=== PATIENT | female | born 1960 | race Caucasian/White ===

== ENCOUNTER 2017-01-14 16:45 | Observation (INO) | payer OTHER ==
[~2017-01-14] VITALS: Ht 165.1 cm; Wt 113.4 kg
[2017-01-14 17:39] VITALS: BP 117/72
[2017-01-14 17:40] VITALS: BP 117/72
[2017-01-14] MEDS ORDERED: PROCHLORPERAZINE 10 MG/2 ML VIAL. IV PRN ×2 (17:45)
[2017-01-14] MEDS ORDERED: MORPHINE SULFATE 2 MG/ML DISP.SYRIN. IV PRN (17:45)
[2017-01-14] MEDS ORDERED: KETOROLAC 15 MG/ML VIAL. IV PRN (17:45)
[2017-01-14] MEDS ORDERED: PROMETHAZINE 12.5 MG in IV NORMAL SALINE 50ML 50 ML IV PRN (17:45)
[2017-01-14] MEDS ORDERED: ACETAMINOPHEN 325 MG TABLET. PO PRN (17:45)
[2017-01-14] MEDS ORDERED: ONDANSETRON PF 4 MG/2 ML VIAL. IV PRN (17:45)
[2017-01-14] MEDS ORDERED: IBUPROFEN 400 MG TABLET. PO PRN (17:45)
[2017-01-14] MEDS ORDERED: PROCHLORPERAZINE 25 MG SUPP.RECT. PR PRN (17:45)
[2017-01-14] MEDS ORDERED: MAGNESIUM HYDROXIDE 2,400 MG/30 ML ORAL.SUSP. PO PRN (17:45)
--- NOTE | 2017-01-14 17:49 | PDOC1 ---
History and Physical Date of Admission Date of Admission DATE: 01/14/17 TIME: 17:44 Identification/Chief Complaint Chief Complaint stuck pork barbecue Problems: Source Source: Chart review, Patient History of Present Illness History of Present Illness pleasant 56 y.o [place]ucs[place] female, hx of Esoph stricture, hx dilatn by outside GI 3 yrs ago, ate pork barbecue and got it stock, Since then emesis, saliva etc, Transferred from [place] for gI and possible EGD, BUt en route via EMS, bumpy ride, she vomited again and this time the whole pork barbecue came out, She feels much better, just tired from her whole ordeal today, Past Medical History Cardiovascular: HTN GI: GERD, Other (esoph stricture) Psych: Depression Past Surgical History Past Surgical History: Other (esophageal diltn) Family History Family History: No Significant Social History Smoke: No ALCOHOL: none Drugs: None Current Problem List Problem List Problems Medical Problems: (1) Esophageal foreign body Status: Acute Problems: Current Medications Current Medications Current Medications Sodium Chloride (Iv Sodium Chloride 0.45%) 1,000 ml @ 100 mls/hr Q10H IV ; Start 01/14/17 at 19:00 Ondansetron HCl (Zofran) 4 mg PRN Q6HRS PRN IV NAUSEA/VOMITING, 2nd choice; Start 01/14/17 at 17:45 Prochlorperazine Edisylate (Compazine) 10 mg PRN Q6HRS PRN IV NAUSEA/VOMITING; Start 01/14/17 at 17:45; Status UNV Prochlorperazine (Compazine) 25 mg PRN Q12HR PRN UT NAUSEA/VOMITING; Start at 17:45 Morphine Sulfate 1 mg PRN Q1HR PRN IV PAIN; Start 01/14/17 at 17:45 Ketorolac Tromethamine (Toradol) 15 mg PRN Q6HRS PRN IV INFLAMMATION/PAIN; Start 01/14/17 at 17:45; Stop 01/19/17 at 17:44 Acetaminophen (Tylenol) 650 mg PRN Q6HRS PRN PO MILD PAIN / TEMP; Start at 17:45; Status UNV Ibuprofen (Motrin) 400 mg PRN Q6HRS PRN PO MILD PAIN; Start 01/14/17 at 17:45; Status UNV Magnesium Hydroxide (Milk Of Magnesia) 2,400 mg PRN Q12HR PRN PO CONSTIPATION; Start 01/14/17 at 17:45; Status UNV Pantoprazole Sodium 40 mg 40 mg DAILYAC IVP ; Start 01/15/17 at 07:30; Status UNV Promethazine HCl/ Sodium Chloride (Phenergan/Iv Sodium Chloride 0.9% 50ml) 50.5 ml @ 151.5 mls/ hr PRN Q6HRS PRN IV NAUSEA/VOMITING, 3rd choice; Start at 17:45 Prochlorperazine Edisylate (Compazine) 10 mg PRN Q6HRS PRN IV NAUSEA/VOMITING, 1st choice; Start 01/14/17 at 17:45 Allergies Allergies: Coded Allergies: No Known Drug Allergies (Unverified , 01/14/17) ROS General: YES: Other (tired, all else is neg) Physical Exam General: Oriented X3, Cooperative, Other (looks tired but not in distress) HEENT: Atraumatic, PERRLA Lungs: Clear to auscultation Cardiovascular: S1, S2 Breasts: Normal, Rt breast nml w/o mass, Lt breast nml w/o mass, Nipples normal Abdomen: Normal bowel sounds, Soft, No tenderness, No hepatosplenomegaly, No masses Rectal Exam: not examined Extremities: No clubbing, No cyanosis, No edema, Normal pulses, No tenderness/ swelling Skin: No rashes, No breakdown, No significant lesion Neuro: Normal gait, Normal speech, Strength at 5/5 X4 ext, Normal tone, Sensation intact, Cranial nerves 3-12 NL, Reflexes 2+ Psych/Mental Status: Mental status NL, Mood NL Vitals Vitals Vital Signs Date Time Temp Pulse Resp B/P Pulse Ox O2 Delivery O2 Flow Rate FiO2 01/14/17 17:40 97.7 68 15 117/72 96 Room Air 97.7 VTE Prophylaxis Ordered VTE Prophylaxis Devices: Yes VTE Pharmacological Prophylaxi: Yes Assessment/Plan Assessment/Plan 1. Esophageal FB - stuck pork barbecue,expelled en route to [facility] after multiple episodes emesis 2. Hx esophageal stricture with hx diltn 3 yrs ago 3,. Depression, HTN, GERD- chronic stable Plan: OBS admit Still GI consult as to check why she got this again - last episode was 3 yrs ago Will defer if need barium swallow, interval EGD ? which pending on their eval can also be done as OP Liquids tonight, Advance as tolerated - REsume home meds freeman Rn and pt KEITH VAUGHAN MD Jan 14, 2017 17:49
[2017-01-14] MEDS: PANTOPRAZOLE IV PUSH 40 MG VIAL. IVP SCH (18:14)
[2017-01-14] MEDS ORDERED: IV 1/2 NORMAL SALINE 1,000 ML IV SCH (19:00)
[2017-01-14 19:24] VITALS: BP 121/71
[2017-01-14 23:00] VITALS: BP 108/71
[2017-01-15 02:29] VITALS: BP 143/82
[2017-01-15 07:25] VITALS: BP 137/85
[2017-01-15] MEDS: PANTOPRAZOLE IV PUSH 40 MG VIAL. IVP SCH (08:00)
--- NOTE | 2017-01-15 10:56 | PDOC2 ---
GI CONSULT Reason For Consult: Food bolus HPI: HPI: 56 y/o female ate BBQ pork and corn on the cob on 01/13, got a piece of food caught. Went to [facility], unresolved, transferred here 01/14, vomited in ambulance on the way w/ resolution of food bolus. H/o dysphagia (pill only), reports EGD by Dr. De La Cruz in [place] ~3 years ago w/ dilation. Believes biopsies were normal. H/o GERD currently treated w/ OTC PPI QD (30 min before breakfast) - BID. No issues w/ recurrent dysphagia until a few days ago noted some difficulty w/ gel cap, not as severe as before. Occasional constipation attributed to not eating enough leafy greens, resolves w/ dietary changes. No abd pain, hematochezia, melena, weight loss. Reports normal colonoscopy ~2 years ago at [place]. Currently feeling much better, tolerating PO w/o issue, would like to DC and have outpt EGD. PMH: PMH: dysphagia w/ h/o esophageal dilation, GERD, HTN, basal cell carcinoma, depression, hysterectomy, FH: Family History: Cancer (mother had colon cancer) Social History: Smoke: No ALCOHOL: none Drugs: None ROS: GEN: Denies fevers, chills, sweats HEENT: Denies blurred vision, sore throat CV: Denies chest pain RESP: Denies shortness of air, cough GI: Per HPI : Denies hematuria, dysuria ENDO: Denies weight changes NEURO: Denies confusion, dizziness MSK: Denies weakness, joint pain/swelling SKIN: Denies jaundice, pruritus VItals: Vitals: Vital Signs Date Time Temp Pulse Resp B/P Pulse Ox O2 Delivery O2 Flow Rate FiO2 01/15/17 07:55 Room Air 01/15/17 07:25 97.9 77 20 137/85 97 97.9 Allergies: Coded Allergies: No Known Drug Allergies (Unverified , 01/14/17) Medications: Current Medications Medications (Trade) Dose Ordered Sig/Brandon Route PRN Reason Start Time Stop Time Status Last Admin Dose Admin Acetaminophen (Tylenol) 650 mg PRN Q6HRS PRN PO MILD PAIN / TEMP 01/14/17 17:45 01/15/17 02:10 Pantoprazole Sodium (Protonix Vial) 40 mg DAILYAC IVP 01/14/17 18:00 01/15/17 08:00 Imaging: Imaging: - PE: GEN: NAD HEENT: Atraumatic, PERRL LUNGS: CTAB HEART: RRR ABD: NABS, S/ND/NT EXTREMITY: trace BLE edema SKIN: No rashes, no jaundice NEURO/PSYCH: A & O 3 A/P: A/P: Food bolus - resolved Dysphagia -history of this w/ prior esophageal dilation -mild symptoms again noted a few days ago w/ pill (not food, liquid) GERD -on OTC PPI QD - BID CRC screen, colon cancer -reports normal colonoscopy ~2 years ago at [place] -- Seems okay to DC from GI standpoint, follow-up for outpatient EGD. Continue PPI. Dr. Faust to see this afternoon. ALPA KENNEY Jan 15, 2017 10:56
[2017-01-15 11:08] VITALS: BP 123/81
--- NOTE | 2017-01-16 02:31 | DS ---
DATE OF DISCHARGE: 01/15/2017 DISCHARGE DIAGNOSES: 1. Dysphagia, acute with prior history of esophageal dilatation and esophageal strictures. 2. Gastroesophageal reflux disease. BRIEF HOSPITAL COURSE: A 56-year-old female patient with prior history of dysphagia with 3-year history of EGD with dilatation, presented to the ER with acute onset of dysphagia with barbecue pork along with corn cob on 01/13 and she had acute dysphagia and went to [facility] and while she was transferring to [facility] with recurrent vomiting, her symptoms resolved with . She has been treated symptomatically and the patient was observed in the hospital and able to tolerate diet very well, was evaluated by Gastroenterology. Recommended to follow up with them in the clinic for continued care. Today, she deemed clinically stable enough after she tolerated diet very well and she was provided dysphagia recommendations and instructions. DISCHARGE EXAMINATION: GENERAL: Alert, oriented x 3. HEART: S1, S2 present. LUNGS: Anterior chest clear. ABDOMEN: Soft, nontender, no organomegaly. EXTREMITIES: No edema. DISCHARGE DISPOSITION: Home. DISCHARGE CONDITION: Stable. FOLLOWUP: With Dr. Lopes or Dr. Faust as needed. DISCHARGE MEDICATIONS: Reviewed and reconciled. Please see MRAD. Total time spent for discharge is 31 minutes for patient education, counseling, and coordination of care. DIANE MCNEIL MD DR: VASQUEZ/ana maría JOB#: [id number] / [id number]
== END 2017-01-15 14:49 | disposition home or self-care (01) ==
LOC: INTOOBSV 16:45 → 6 SOUTH 16:45
PROVIDERS: ADMIT Internal Medicine; ATTEND Internal Medicine
DX: T18.128A Food in esophagus causing other injury, initial encounter (principal); R13.10 Dysphagia, unspecified; K21.9 Gastro-esophageal reflux disease without esophagitis; I10 Essential (primary) hypertension; F32.9 Major depressive disorder, single episode, unspecified; Z85.828 Personal history of other malignant neoplasm of skin; Z80.0 Family history of malignant neoplasm of digestive organs; Y92.89 Other specified places as the place of occurrence of the external cause
CPT/HCPCS: 96374; 96376; C9113; G0378; G0379